=== PATIENT | female | born 1960 ===

== ENCOUNTER 2018-04-11 09:09 | Emergency (ER) | payer OTHER ==
[~2018-04-11] VITALS: Ht 152.4 cm; Wt 90.7 kg
== END 2018-04-11 10:49 | disposition home or self-care (01) ==
LOC: ER 09:09
DX: S52.591A Other fractures of lower end of right radius, initial encounter for closed fracture (principal); S52.691A Other fracture of lower end of right ulna, initial encounter for closed fracture; W18.09XA Striking against other object with subsequent fall, initial encounter; Y93.89 Activity, other specified; Y92.814 Boat as the place of occurrence of the external cause; Y99.8 Other external cause status